=== PATIENT | female | born 1940 | race American Indian/Alaskan Native ===

== ENCOUNTER 2017-03-29 06:54 | Day surgery (SDC) | payer MEDICARE ==
[2017-03-23 14:17] VITALS: BMI 32.3
[2017-03-29] MEDS ORDERED: Propofol 10 mg/ml Inj (20 ML) ONE (07:02)
[2017-03-29] MEDS ORDERED: Lidocaine Hydrochloride 5 ML INJ ONE (07:02)
[2017-03-29] MEDS ORDERED: cefTRIAXone IV 1 gm in Dextros 50 ML IVPB ONE (07:23)
[2017-03-29] MEDS ORDERED: Iohexol 240 (50 ml) ONE (07:23)
[2017-03-29] MEDS ORDERED: Lactated Ringer's 500 ML IV ONE ×2 (07:45→10:10)
--- NOTE | 2017-03-29 08:40 | PCM.SURG1 ---
Surgeon's Initial Post Op Note - Surgeon's Notes Surgeon: Eboni SAHU Dry Placer Machine Operator: Cely JEAN-BAPTISTE Type of Anesthesia: General Mask Pre-Operative Diagnosis: HX OF BLADDER CA Operative Findings: RECURRENT TUMOR, POSTR WALL AND BN Post-Operative Diagnosis: SAME Operation Performed: CYSTO,. BILAT RTG PYELOGRAM,. BLADDER BX'S AND FULG. TUR -BN. EUA Specimen/Specimens Removed: URINE. BLADDER TUMORS Estimated Blood Loss: EBL {In ML}: 0 Blood Products Given: N/A Post-Op Condition: Good Date of Surgery/Procedure: 03/29/17 Time of Surgery/Procedure: 08:30
[2017-03-29] MEDS ORDERED: Lactated Ringer's 1,000 ML IV SCH (08:45)
[2017-03-29] MEDS ORDERED: Enalaprilat 2.5 MG/2 ML IV ONE (08:56)
[2017-03-29] MEDS: HYDROmorphone 0.5 mg/0.5 ml ISec IVP PRN ×2 (09:00→09:15)
[2017-03-29] MEDS ORDERED: HYDROmorphone 1 mg/ml ISec ONE (09:04)
[2017-03-29 10:44] VITALS: RESP 19
[2017-03-29 13:33] VITALS: BP 154/65; PULSE 61; TEMP 97.6; O2SAT 97
--- NOTE | 2017-03-29 13:55 | RAD ---
HISTORY: HX. OF BLADDER TUMOR COMPARISON: 05/21/2016. FINDINGS: BOWEL: Normal. No obstruction. No free air. BONES: Normal. OTHER FINDINGS: Calcified uterine fibroid. IMPRESSION: No significant or acute findings to account for/ related to the clinical presentation. No significant interval change compared to the prior examination(s).
--- NOTE | 2017-03-29 13:56 | RAD ---
PROCEDURE: Intraoperative Fluoroscopy. HISTORY: HX. OF BLADDER TUMOR FINDINGS: Fluoroscopic assistance was provided for cystogram and bilateral retrograde study. Please refer to the operative report from performance of the procedure.
--- NOTE | 2017-03-31 01:14 | OP ---
PROCEDURE DATE: 03/29/2017 PREOPERATIVE DIAGNOSES: History of bladder tumor. POSTOPERATIVE DIAGNOSES: History of bladder tumor. Recurrent bladder tumor. PROCEDURE: Cystoscopy. Bilateral retrograde pyelogram. Bladder biopsies and fulguration. Transure thral resection of bladder neck. OPERATING SURGEON: Exam under anesthesia. PROCEDURE: The patient was placed in lithotomy position. Anesthesia was provided by the anesthesiol ogist via facemask. Perioperative antibiotics were administered. The genitalia prepped and draped s terilely. A 22-Togolese cystoscope sheath was introduced with obturator. Urethra and bladder were inspected. FINDINGS: There was no bladder neck contracture. There is papillary bladder tumor located at the bl adder neck on the right anterior aspect of the bladder neck. The trigone was normal. The ureteral orifices were normal in position and shape. There are multiple areas of abnormal bladder mucosa. There were reddened areas and slightly raised g ranular areas suggestive of early bladder tumor recurrence. Occlusive tip retrograde ureteropyelogram was performed. Iodinated contrast dye was instilled via co ne-tipped catheter into each ureteral orifice. The ureter and kidney were viewed sequentially. FINDINGS: Meat Specialist film revealed a large round calcification in the pelvis consistent with a fibroid ut erus. The retrograde ureteropyelogram demonstrated no evidence of filling defect or obstruction. There was an area of abnormality involving the left upper pole collecting system. There was a rounde d contrast collection without definite filling defect. There was incomplete drainage from this area of the upper pole of the left kidney. These findings are suggestive of a possible caliceal abnormali ty, possible calyceal diverticulum. There was no filling defect within the renal pelvis or the ureter. The right retrograde ureteropyelogram demonstrated no evidence of filling defect or obstruction. There was excellent drainage noted on the post-drainage views. The areas of the abnormal mucosa of the bladder were biopsied using cold cup biopsy forceps. There w ere 2 separate areas which were biopsied. Fulguration was performed with electrocautery for hemostas is as well as for possible tumor control. The cystoscope and sheath were removed. A 26-Togolese continuous flow resectoscope sheath was introduced with obturator. The lesion of the bladder neck was resected fully. Fulguration was performed with ball electrode and electrocautery. Specimens sent for pathologic examination. The previous biopsy sites were now fulgurated for hemosta sis as well as for possible tumor control. Hemostasis was achieved. The bladder was reinspected. There were no other tumors identified. There was no bleeding noted. There was no residual tumor. The bladder was drained. Cystoscope and sheath removed. Simon catheter was inserted. Bladder drainage was clear. Exam under anesthesia was performed. There was no abnormal pelvic mass, fixation or induration. The re was no adnexal mass. The bladder was mobile and supple. The patient tolerated the procedure without complication. Sendy Bertrand MD cc: [id number] TT: 03/31/2017 01:14:01 an
== END 2017-03-29 13:26 | disposition home or self-care (01) ==
LOC: C.SDS 06:54
PROVIDERS: ATTEND Urology
DX: C67.9 Malignant neoplasm of bladder, unspecified (principal)
CPT/HCPCS: 52214; 52500; 74000; 76000; 82948; 87086; 88104; 88305; C1758; J0696; J1170; J2405; J2765; J7120

== ENCOUNTER 2017-12-27 06:29 | Day surgery (SDC) | payer MEDICARE ==
[2017-12-21 12:12] VITALS: BMI 32.0
[2017-12-27] MEDS ORDERED: Iohexol 240 (50 ml) ONE (07:22)
[2017-12-27] MEDS ORDERED: Lidocaine 2% Jelly (Uro-Jet) ONE (07:23)
[2017-12-27] MEDS ORDERED: Propofol 10 mg/ml Inj (20 ML) ONE (08:37)
[2017-12-27] MEDS ORDERED: Midazolam 2 MG/2 ML VIAL ONE (08:37)
--- NOTE | 2017-12-27 09:13 | PCM.SURG1 ---
Surgeon's Initial Post Op Note - Surgeon's Notes Surgeon: Eboni Bertrand Awning Frame Maker: none Type of Anesthesia: IV Sedation Pre-Operative Diagnosis: Bladder tumor Operative Findings: abnormal bladder mucosa Post-Operative Diagnosis: same Operation Performed: cysto. bilat rtg pyelogram. bladder bx and fulg. EUA Specimen/Specimens Removed: urine. bladder bx Estimated Blood Loss: EBL {In ML}: 0 Blood Products Given: N/A Drains Used: No Drains Post-Op Condition: Good Date of Surgery/Procedure: 12/27/17 Time of Surgery/Procedure: 09:05
[2017-12-27 11:16] VITALS: BP 149/64; PULSE 89; RESP 18; TEMP 97.9; O2SAT 100
--- NOTE | 2017-12-27 15:27 | RAD ---
PROCEDURE: Intraoperative Fluoroscopy. HISTORY: HX. OF BLADDER TUMOR FINDINGS: Fluoroscopic assistance was provided for bilateral retrograde. Please refer to the operative report from Dr. SAHU, CALVIN. Total fluoroscopic time (continuous mode) utilized during the procedure: seconds. 14.1 seconds.
--- NOTE | 2017-12-27 15:44 | RAD ---
HISTORY: HX. OF BLADDER TUMOR COMPARISON: 03/29/2017 FINDINGS: BOWEL: Normal. No obstruction. No free air. BONES: Normal. OTHER FINDINGS: Calcified pelvic macro/uterine fibroid. IMPRESSION: No visible calculus disease. No significant interval change compared to the prior examination(s).
--- NOTE | 2017-12-29 15:27 | OP ---
PROCEDURE DATE: 12/27/2017 PREOPERATIVE DIAGNOSIS: History of recurrent bladder carcinoma. POSTOPERATIVE DIAGNOSES: 1. History of recurrent bladder carcinoma. 2. Cystitis. 3. Abnormal bladder mucosa. 4. Probably no recurrent tumor. PROCEDURES: 1. Cystoscopy. 2. Bilateral retrograde pyelogram. 3. Bladder biopsy and fulguration. 4. Exam under anesthesia. OPERATING SURGEON: Sendy Bertrand MD DESCRIPTION OF PROCEDURE: The patient was placed in lithotomy position. Genitalia prepped and draped sterilely. Perioperative antibiotics were administered. Anesthesia was provided by the anesthesiologist with sedation. A 22-Georgian cystoscope sheath was introduced under direct vision. Urethra, prostate, and bladder were inspected using 30-degree and 70-degree lenses. FINDINGS: The urethral caliber was noted to be normal. The bladder neck was normal. There was no papillary bladder tumor. There was no bladder stone. The area of the scar on the trigone was identified as well as on the floor of the bladder. The ureteral orifices were normal in position and shape. Occlusive tip retrograde ureteropyelogram was performed. Iodinated contrast dye was instilled via cone-tip catheter via each ureteral orifice. The urine and kidneys were viewed sequentially with fluoroscopy. There was no evidence of filling defect or obstruction within the ureters or collecting system. There was good drainage noted on the post drainage film. The bladder mucosa demonstrated some areas of moderate erythema with slight granular changes involving the posterior wall of the bladder. This area was biopsied using cold cup biopsy forceps. Fulguration was performed with electrocautery. Hemostasis was complete. The bladder was reinspected with 70-degree lens and confirmed the above findings. The bladder was drained. Cystoscope sheath was removed. Exam under anesthesia was performed. There was no adnexal mass. There was no abnormal pelvic mass fixation or induration. The patient tolerated the procedure without complication. Sendy Bertrand MD
== END 2017-12-27 11:28 | disposition home or self-care (01) ==
LOC: C.SDS 06:29
PROVIDERS: ATTEND Urology
DX: N30.90 Cystitis, unspecified without hematuria (principal); Z85.51 Personal history of malignant neoplasm of bladder
CPT/HCPCS: 52204; 74018; 82948; 87086; 88104; 88305; C1758

== ENCOUNTER 2018-10-03 06:39 | Day surgery (SDC) | payer MEDICARE ==
[2018-09-21 14:05] VITALS: BMI 32.0
[2018-10-03 07:34] VITALS: RESP 18
[2018-10-03] MEDS ORDERED: Lidocaine 2% Jelly (Uro-Jet) ONE (07:53)
[2018-10-03] MEDS ORDERED: Iohexol 240 (50 ml) ONE (07:53)
[2018-10-03] MEDS ORDERED: cefTRIAXone 1 gm 1 GM/100 ML BAG IVPB ONE (07:53)
[2018-10-03] MEDS ORDERED: Midazolam 2 MG/2 ML VIAL ONE (08:15)
[2018-10-03] MEDS ORDERED: Propofol 10 mg/ml Inj (20 ML) ONE (08:16)
[2018-10-03] MEDS ORDERED: HYDROmorphone 0.5 mg/0.5 ml ISec IVP PRN (08:53)
[2018-10-03] MEDS ORDERED: Metoprolol 1 mg/ml Inj IVP ONE (08:55)
--- NOTE | 2018-10-03 09:23 | PCM.SURG1 ---
Surgeon's Initial Post Op Note - Surgeon's Notes Surgeon: Eboni Bertrand Automotive Sales Manager: none Type of Anesthesia: General LMA Pre-Operative Diagnosis: Hx of bladder tumor Operative Findings: same. abnormal bladder mucosa Post-Operative Diagnosis: same Operation Performed: cysto. bilat rtg pyelogram. bladder bx's and fulg. eua Specimen/Specimens Removed: urine. bladder bx Estimated Blood Loss: EBL {In ML}: 0 Blood Products Given: N/A Drains Used: No Drains Post-Op Condition: Good Date of Surgery/Procedure: 10/03/18 Time of Surgery/Procedure: 08:50
[2018-10-03 10:22] VITALS: O2SAT 99
[2018-10-03 10:53] VITALS: BP 147/71; PULSE 85; TEMP 97.7
--- NOTE | 2018-10-03 11:11 | RAD ---
Date of service: 10/03/2018 HISTORY: HX. OF BLADDER TUMOR COMPARISON: 12/27/2017 FINDINGS: BOWEL: Normal. No obstruction. No free air. BONES: Normal. OTHER FINDINGS: There is a 3 cm calcified fibroid. This is unchanged. There are no other calcifications seen IMPRESSION: No active disease.
--- NOTE | 2018-10-03 13:14 | RAD ---
Date of service: 10/03/2018 PROCEDURE: Fluoroscopy up to 1 hr HISTORY: HX. OF BLADDER TUMOR COMPARISON: TECHNIQUE: 11.3 sec of fluoro time. Cumulative dose 0.143 mGy per meter squared. Nine images were submitted FINDINGS: There is opacification of both ureters and renal collecting systems. There are no filling defects seen. IMPRESSION: As above
--- NOTE | 2018-10-04 11:38 | OP ---
PROCEDURE DATE: 10/03/2018 PREOPERATIVE DIAGNOSIS: History of bladder carcinoma. POSTOPERATIVE DIAGNOSES: No recurrent tumor. Abnormal bladder mucosa with erythema. PROCEDURES: Cystoscopy. Bilateral retrograde ureteral pyelogram. Bladder biopsy and fulguration. Exam under anesthesia. OPERATIONS: Sendy Bertrand MD DESCRIPTION OF PROCEDURE: Procedure as follows: The patient was placed in lithotomy position. The patient received perioperative antibiotics. The genitalia was prepped and sterilely. The patient was placed in lithotomy position. Anesthesia was applied by the anesthesiologist. A 22-Nepali cystoscope sheath was introduced with obturator. Urine was sent for bacteriologic and cytologic examination. The bladder was inspected with 30-degree, and subsequently, 70-degree lens. FINDINGS: There was no bladder tumor. There was erythema noted on the posterior wall of the bladder towards the midline. The dome was normal. The lateral bey were normal. The ureteral orifices were normal in position and shape. There was an area of scar noted on the right posterior wall of the bladder. Retrograde ureteropyelogram was performed. Iodinated contrast dye was instilled via cone-tip catheter into each ureteral orifice. Retrograde pyelogram demonstrated no evidence of filling defect or obstruction within the ureters or collecting systems. There was excellent drainage noted on the post drainage films. The area of abnormal mucosa was biopsied using cold cup biopsy forceps. Two biopsies were obtained. Fulguration was performed with electrocautery for hemostasis as well as possible tumor control. The bladder was reinspected with 70-degree lens to confirm the above findings. The bladder was then drained. Cystoscope and sheath removed. Exam under anesthesia was performed. There was no abnormal pelvic mass fixation or induration. The patient was returned to supine position. The patient tolerated procedure without complication. Sendy Bertrand MD
== END 2018-10-03 11:44 | disposition home or self-care (01) ==
LOC: C.SDS 06:39
PROVIDERS: ATTEND Urology
DX: N32.9 Bladder disorder, unspecified (principal); Z08 Encounter for follow-up examination after completed treatment for malignant neoplasm; Z85.51 Personal history of malignant neoplasm of bladder
CPT/HCPCS: 52005; 52204; 74018; 82948; 87086; 88104; 88305; C1758; J0696; J2405; Q9966

== ENCOUNTER 2019-03-01 17:22 | Emergency (ER) | payer MEDICARE ==
[2019-03-01 17:48] VITALS: RESP 20; BMI 32.0
--- NOTE | 2019-03-01 18:20 | C.PDOC ---
History Of Present Illness 78 year old female presents with right scapular muscle pain for the past 4 days after she was shopping and pushed an overloaded cart. Patient has been applying heating pads and taking hot showers with no relief. Patient has been taking tylenol with codeine every 6 hours with no relief. She has not taken her daily meds today, reports feeling nauseated. Contrary to triage, patient has not vomited today or in the last 4 days. Time Seen by Provider: 03/01/19 17:54 Chief Complaint (Nursing): Upper Extremity Problem/Injury History Per: Patient History/Exam Limitations: no limitations Onset/Duration Of Symptoms: Days Current Symptoms Are (Timing): Still Present Recent travel outside of the [place]: No Past Medical History Reviewed: Historical Data, Nursing Documentation, Vital Signs Vital Signs: Last Vital Signs Temp 98.6 F 03/01/19 17:31 Pulse 99 H 03/01/19 17:31 Resp 20 03/01/19 17:31 BP 157/97 H 03/01/19 17:31 Pulse Ox 99 03/01/19 17:31 Primary Care Provider: Otf Ruiz - Medical History PMH: Anemia, Gastritis, HTN, Hypercholesterolemia Denies: Chronic Kidney Disease Surgical History: Endoscopy, Tonsillectomy - [facility] Procedures CYSTOSCOPY NEC (08/30/14) RETROGRADE PYELOGRAM (08/30/14) TU DESTRUC BLADD LES NEC (08/30/14) Family History: States: Unknown Family Hx - Social History Hx Tobacco Use: No Hx Alcohol Use: No Hx Substance Use: No - Immunization History Hx Tetanus Toxoid Vaccination: No Hx Influenza Vaccination: Yes Hx Pneumococcal Vaccination: Yes Review Of Systems Constitutional: Negative for: Fever, Chills Cardiovascular: Negative for: Chest Pain, Palpitations Respiratory: Negative for: Cough, Shortness of Breath Gastrointestinal: Negative for: Nausea, Vomiting Musculoskeletal: Positive for: Other (Right scapular pain) Neurological: Negative for: Weakness, Numbness Physical Exam - Physical Exam Appears: Non-toxic, No Acute Distress, Other (Elderly black female) Skin: Normal Color, Warm Head: Atraumatic, Normacephalic Oral Mucosa: Moist Neck: Normal, Supple Chest: Symmetrical, No Tenderness Cardiovascular: Rhythm Regular Respiratory: Normal Breath Sounds, No Rales, No Rhonchi, No Wheezing Gastrointestinal/Abdominal: Soft, No Tenderness Back: Other (Tenderness and spasm to right trapezious medial to scapular aspect, no rash or ecchymosis) Extremity: Normal ROM (x4), Other (Right shoulder normal) Neurological/Psych: Oriented x3, Normal Speech, Normal Motor, Normal Sensation ED Course And Treatment O2 Sat by Pulse Oximetry: 99 Medical Decision Making Medical Decision Making: R posterior trapezius strain clear lungs chronic Tylenol #3 use for ? ice/NSAIDS offered Disposition Doctor Will See Patient In The: Office Counseled Patient/Family Regarding: Studies Performed, Diagnosis - Disposition Referrals: Otf Ruiz MD, PhD [Staff Provider] - Disposition: HOME/ ROUTINE Disposition Time: 18:20 Condition: GOOD Additional Instructions: ice packs 1/2 hour per hour, nothing hot no hot showers for 3 days NO MORE HEATING PADS!!!!!! Take your meal and meds tonight @ home. Instructions: Muscle Strain (DC) Forms: [employer] (Greenlandic) - Clinical Impression Clinical Impression: Muscle strain of upper back - Scribe Statement The provider has reviewed the documentation as recorded by the Scribjude Romeo All medical record entries made by the Scribe were at my direction and personally dictated by me. I have reviewed the chart and agree that the record accurately reflects my personal performance of the history, physical exam, medical decision making, and the department course for this patient. I have also personally directed, reviewed, and agree with the discharge instructions and disposition.
[2019-03-01 18:42] VITALS: BP 166/74; PULSE 78; TEMP 98.3
[2019-03-01 19:34] VITALS: O2SAT 99
== END 2019-03-01 18:42 | disposition home or self-care (01) ==
LOC: C.ER 17:22
DX: S29.012A Strain of muscle and tendon of back wall of thorax, initial encounter (principal); X50.9XXA Other and unspecified overexertion or strenuous movements or postures, initial encounter